=== PATIENT | male | born 1995 | race Caucasian/White ===

== ENCOUNTER 2017-06-04 16:26 | Emergency (ER) | payer OTHER ==
[2017-06-04 17:02] VITALS: BP 127/101
[2017-06-04] MEDS ORDERED: TYLENOL #3 PO ONE (17:38)
[2017-06-04] MEDS ORDERED: BOOSTRIX IM ONE (17:39)
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
== END 2017-06-04 19:40 | disposition home or self-care (01) ==
LOC: ED 16:26
DX: S01.511A Laceration without foreign body of lip, initial encounter (principal); J45.909 Unspecified asthma, uncomplicated; Y08.89XA Assault by other specified means, initial encounter; Y93.89 Activity, other specified; Y99.8 Other external cause status; Y92.143 Cell of prison as the place of occurrence of the external cause
CPT/HCPCS: 90471; 90715